=== PATIENT | male | born 1940 | race Caucasian/White ===

== ENCOUNTER → 2018-02-02 17:09 | Outpatient (CLI) | payer MEDICARE, OTHER, SELFPAY ==
--- NOTE | 2018-02-02 | DI.MRI.S_ITS ---
PROCEDURE: MR KNEE LT WO CON INDICATIONS: INTERNAL DERANGEMENT OF LEFT KNEE TECHNIQUE: Noncontrast sagittal PD fast spin echo and T2 fast spin echo with fat saturation, sagittal 3-D FLASH with fat saturation; coronal T1 spin echo and PD fast spin echo with fat saturation, and axial PD fast spin echo with fat saturation through the knee. COMPARISON: None. FINDINGS: Image quality: Excellent. Menisci: There is suggestion of a complex tear involving posterior horn of medial meniscus extending to inferior articulating surface. No evidence of focal lateral meniscal tear. The meniscal root ligaments appear intact. Cruciate ligaments: The anterior and posterior cruciate ligaments appear intact. Medial structures: The medial collateral ligament appears intact. The posterior oblique ligament, semimembranosus tendon insertions, oblique popliteal ligament, and meniscocapsular junction appear intact. Visualized portions of the pes anserinus tendons appear normal. No abnormal bursal fluid. Lateral structures: The lateral collateral ligament, long and short heads of the biceps femoris tendon appear intact. The popliteus tendon appears normal; the popliteofibular ligament appears intact. The posterosuperior and anteroinferior popliteomeniscal fascicles appear intact. The arcuate and fabellofibular ligaments appear intact, on either side of the lateral inferior geniculate artery. Iliotibial band appears normal. Anterior structures: The quadriceps and patellar tendons appear intact. Patellar alignment is normal. No femoral trochlear dysplasia or ventral trochlear prominence. No edema in the infrapatellar fat pad. Bones and cartilage: No bone marrow contusions or fractures. Mild tricompartmental osteoarthritis is seen the prominent medial femorotibial compartment. Chondromalacia involving cartilage overlying medial femoral condyle is seen. Patellar cartilage is intact. Joint space: There is physiologic knee joint fluid. No Guerin's cyst. Normal appearing synovial plicae are incidentally noted. IMPRESSION: 1. Complex oblique tear involving posterior horn of medial meniscus extending to inferior articulating surface. No evidence of focal lateral meniscal tear. 2. Mild tricompartmental osteoarthritis more prominent in the medial femorotibial compartment. 3. Cruciate ligaments are intact. Dictated by: Hung Brunner M.D. on 02/02/2018 at 18:03 Approved by: Hung Brunner M.D. on 02/02/2018 at 18:08
== END ==
PROVIDERS: PCP Internal Medicine; Visit Provider Orthopaedic Surgery
DX: S83.232A Complex tear of medial meniscus, current injury, left knee, initial encounter (principal); M17.12 Unilateral primary osteoarthritis, left knee
CPT/HCPCS: 73721

== ENCOUNTER → 2018-08-21 10:44 | Outpatient (CLI) | payer MEDICARE, OTHER, SELFPAY ==
--- NOTE | 2018-08-21 | DI.RAD.S_ITS ---
PROCEDURE: FL BARIUM SWALLOW INDICATIONS: Dysphagia, unspecified COMPARISON: None. FINDINGS: Function: There is moderate esophageal dysmotility with disorganized tertiary contractions to an examination. Mild gastroesophageal reflux was elicited on exam. There is normal transit of a calibrated barium tablet through the esophagus into the stomach. Morphology: There are postsurgical changes at the gastroesophageal junction. The patient reports a history of hiatal hernia repair. The findings are presumably related to Faviola's fundoplication. Air-contrast images demonstrate normal mucosal morphology. Single contrast views show no esophageal strictures, extrinsic mass effects, or diverticula. Limited images of the stomach demonstrate normal appearance. IMPRESSION: 1. Moderate esophageal dysmotility. 2. Mild gastroesophageal reflux. 3. Postsurgical changes at the GE junction presumably related to Faviola's fundoplication. Recommend clinical correlation. Dictated by: Aquilino Perez M.D. on 08/21/2018 at 11:54 Approved by: Aquilino Perez M.D. on 08/21/2018 at 11:57
== END ==
PROVIDERS: PCP Internal Medicine; Visit Provider Internal Medicine Gastroenterology
DX: R13.10 Dysphagia, unspecified (principal); K22.4 Dyskinesia of esophagus; K21.9 Gastro-esophageal reflux disease without esophagitis
CPT/HCPCS: 74220

== ENCOUNTER 2021-10-04 10:28 | Inpatient (IN) | payer MEDICARE, OTHER, SELFPAY ==
--- NOTE | 2021-10-04 | DI.RAD.S_ITS ---
PROCEDURE: XR ABDOMEN 1V INDICATIONS: SBFT TECHNIQUE: One view of the abdomen acquired. COMPARISON: None. FINDINGS: Enteric contrast was administered via nasogastric versus orogastric tube. This opacifies the stomach and progresses into the proximal and mid small bowel within 1 minutes. Subsequent images demonstrate that the contrast progresses throughout the entire small and large bowel. IMPRESSION: Contrast progresses throughout the entire small and large bowel with no evidence of obstruction. Numerous dilated loops of small bowel and to a lesser degree large bowel may represent ileus. Dictated by: Chema Workman M.D. on 10/04/2021 at 20:10 Approved by: Chema Workman M.D. on 10/04/2021 at 20:11
[2021-10-04 12:33] VITALS: BMI 25.1
--- NOTE | 2021-10-04 13:02 | PC.NURSE ---
Admit pt to AC direct admit at 1215. VSS. HOB elevated at 30 degrees with NG to medium intermittent suction. NG tube is in R nares and taped at 65. Pt alert and oriented and able to converse without difficulty. Oriented to room and call light. Bed alarm on. Supportive spouse at bedside. Pt and spouse notified of NPO status.
[2021-10-04 13:43] VITALS: BP 149/75; PULSE 106; RESP 18; TEMP 36.9; O2SAT 94
--- NOTE | 2021-10-04 13:50 | PM.HP.1 ---
History of Present Illness History of Present Illness Date Patient Seen: 10/04/21 Time Patient Seen: 13:30 Chief complaint: SBO Narrative: Patient is 80-year-old male with history of chronic headache, GERD, appendectomy, cholecystectomy, hiatal hernia repair, as well as multiple abdominal surgeries for SBO. Patient last had major abdominal surgery in 2003 at [facility] which was for adhesion lysis of acute small-bowel obstruction. He has been told by his GI doc that he has extensive abdominal adhesions and to avoid another surgery if possible. He initially presented to [facility] earlier today with complaints of acute abdominal pain and vomiting which started yesterday at 3:30 p.m.. He last dated 5:30 p.m. yesterday last bowel movement was yesterday morning. He has not been passing flatus. CT scan with Gastrografin contrast was attempted but he threw up the contrast. Noncontrast CT did show moderate air-fluid gastric distension with dilated duodenum and jejunum with gradual transition in the proximal ileum. WBC was 18.9, hemoglobin 15.2, platelets 242, sodium 142, potassium 4.3, BUN 19 creatinine 1.3, CO2 24, glucose 162, normal LFTs. NG tube was placed with immediate suction of 700 cc gastric fluid. He has not had fever or chills. He was transferred to [facility] due to lack of surgeon availability at outside hospital. At this time he feels quite distended with moderate abdominal discomfort but no active vomiting. He is not passing flatus. Other surgical history includes a right total hip replacement. Medical history includes COPD, GERD, chronic headaches, BPH, osteoarthritis. No history of coronary artery disease. Patient is , nonsmoker, 1 drink a week. Family history notable for 2 sisters who , 1 with cancer and 1 with diabetes history. Mother had Parkinson's. Patient History Family & Social History Social History: household members spouse Prior Living Arrangements House Safety & Behavioral: Feels Safe in Current Yes Environment Been Physically Hurt or No Threatened By a Person Tobacco & Substance use: Smoking Status Former smoker alcohol intake current alcohol intake frequency a few times a month Substance Use Type does not use Meds Home Medications and Allergies Home Medications Medication Instructions Recorded Confirmed Type 10/04/21 History albuterol sulfate 90 mcg/actuation 2 inh INHALATION Q6H PRN 10/04/21 10/04/21 History breath activated powder inhaler,sensor (Proair Digihaler) beclomethasone dipropionate 80 2 inh INHALATION BID 10/04/21 10/04/21 History mcg/actuation HFA breath activated aerosol (Qvar RediHaler) cholestyramine (with sugar) 4 gram 4 g PO DAILY 10/04/21 10/04/21 History oral powder (Questran) finasteride 5 mg tablet (Proscar) 5 mg PO DAILY 10/04/21 10/04/21 History gabapentin 300 mg tablet 300 mg PO DAILY 10/04/21 10/04/21 History gabapentin 600 mg tablet 600 mg PO BID 10/04/21 10/04/21 History meloxicam 15 mg tablet 15 mg PO DAILY 10/04/21 10/04/21 History mirabegron 50 mg tablet,extended 50 mg PO DAILY 10/04/21 10/04/21 History release 24 hr omeprazole magnesium 20 mg 20 mg PO DAILY 10/04/21 10/04/21 History capsule,delayed release verapamil 40 mg tablet 40 mg PO TID 10/04/21 10/04/21 History Allergies Allergy/AdvReac Type Severity Reaction Status Date / Time epinephrine AdvReac Rash Verified 10/04/21 13:00 Iodine and Iodide Containing AdvReac Rash Verified 10/04/21 13:00 Produc latex AdvReac Rash Verified 10/04/21 13:00 Review of Systems Review of Systems Narrative: He is having some heartburn discomfort, chronic headache, joint pains. Otherwise ROS negative. Exam Vital Signs (past 8 hours): Oxygen Delivery Method Room Air Narrative Exam Narrative: General: Very pleasant alert male who does not appear in severe distress at this time. HEENT: Anicteric, pupils equal and reactive Neck: No lymphadenopathy Lungs: Clear to auscultation Heart: Normal S1 and S2, regular rate and rhythm, without murmur Abdomen: Old midline surgical scars, markedly distended abdomen with absent bowel sounds, no palpable mass Extremities: Warm and nonedematous Neurological: Well oriented, normal affect and speech Skin: No rash Assessment & Plan Assessment & Plan narrative: 1. Acute small-bowel obstruction -patient with prior history of multiple small-bowel obstructions and surgeries for adhesion lysis, outside noncontrast CT consistent with upper small bowel obstruction -will discuss with surgery whether to get a contrast CT study with Gastrografin through NG tube -NG to low intermittent suction -Strict NPO -NS at 150 cc/hour -Morphine PRN -Labs: CBC, CMP, lactate -consult Dr. Jiménez for surgery 2. GERD -Protonix 40 mg IV q.day 3. Chronic headache -hold gabapentin and for appy mill 4. BPH -hold finasteride and mirabegron -monitor for urinary retention 5. COPD -no symptoms currently or wheezing on exam -initiate albuterol MDI if needed DVT prophylaxis: Lovenox Surrogate decision maker: Spouse Time Spent With Patient Critical Care time: I spent a total of [] minutes of critical care time on this patient's care today; this time is exclusive of procedural time. Quality VTE Deep Vein Thrombosis/Pulmonary Embolism Present on Admission: No
[2021-10-04 14:28] VITALS: TEMP 37.3
[2021-10-04] MEDS: SODIUM CHLORIDE 0.9% 1,000 ML 150 ML IV (14:32)
[2021-10-04] MEDS: PANTOPRAZOLE 40 MG VIAL IV (14:32)
[2021-10-04 14:40] LABS: Add Manual Diff / Slide Review NO; Basophils Absolute Auto 0 /uL (0-100); Basophils Percent Auto 0.1 % (0-2); Eosinophils Absolute Auto 0 /uL (0-450); Hematocrit 45.9 % (41-53); Hemoglobin 15.2 g/dL (13.5-17.5); Lymphocytes Absolute Auto 500 /uL (1100-4500); Lymphocytes Percent Auto 2.2 % (25-40); Mean Corpuscular HGB Conc 33.1 % (30-36); Mean Corpuscular Hemoglobin 29.3 PG (26-34); Mean Corpuscular Volume 88.7 fL (80-100); Monocytes Absolute Auto 1300 /uL (0-900); Monocytes Percent Auto 5.6 % (3-14); Neutrophils Absolute Auto 21100 /uL (1500-7000); Neutrophils Percent Auto 92.1 % (50-75); Platelet Count 225 X10^3/uL (150-400); Red Blood Cell Count 5.17 X10^6/uL (4.5-5.9); White Blood Cell Count 22.9 X10^3/uL (4.5-11.0)
[2021-10-04 14:57] LABS: Alanine Aminotransferase 201 IU/L (<50); Albumin Globulin Ratio 1.4 (1.0-2.8); Alkaline Phosphatase 195 U/L (38-126); Aspartate Aminotransferase 142 IU/L (17-59); BUN Creatinine Ratio 15.5 (6-22); Bilirubin Total 0.8 mg/dL (0.2-1.3); Blood Urea Nitrogen 17 mg/dL (9-20); Calcium 8.7 mg/dL (8.4-10.2); Carbon Dioxide 25 mmol/L (22-32); Chloride 104 mmol/L (98-107); Estimated Glomerular Filt Rate > 60 mL/min (>60); Globulin 2.9 g/dL (1.7-4.1); Glucose 121 mg/dL (80-110); HEMOLYSIS < 15 (0-50); Potassium 4.5 mmol/L (3.4-5.1); Sodium 139 mmol/L (137-145); Total Protein 6.9 g/dL (6.3-8.2)
[2021-10-04 15:17] LABS: Lactate (Lactic Acid) 1.2 mmol/L (0.7-2.1)
--- NOTE | 2021-10-04 15:28 | PC.NURSE ---
late note: patient's pain is controlled with vistaril, oxycodone and tylenol. pt refused miralax. mira patent, ok per provider to leave it in.
[2021-10-04 17:43] VITALS: BP 127/77; PULSE 104; RESP 18; TEMP 36.9; O2SAT 94
[2021-10-04] MEDS: ONDANSETRON 4 MG/2 ML INJ IV (18:21)
--- NOTE | 2021-10-04 20:09 | PM.CN ---
History of Present Illness Consult details Date Patient Seen: 10/04/21 Time Patient Seen: 14:00 Chief complaint: SBO Narrative: 80 y.o man numerous abdominal surgeries transfered from outside hospital for a sbo. Developed abdominal pain N/V yesterday, no flatus or BM. CT at OSH demonstrates SBO no free air was not performed with PO contrast. NGT placed with bilious output. 4 previous ex laps for SBO no notes available but by his description they were complex multiple enterotoimes, multiple small bowel resesctions, perhaps fistuals. He was told by his providers he should never have further abdominal surgery unless dire emergency. At admission WBC 22 from 18 24 hrs ago, hr 110, BP 150/90, temp 99.5 Meds Home Medications and Allergies Home Medications Medication Instructions Recorded Confirmed Type 10/04/21 History albuterol sulfate 90 mcg/actuation 2 inh INHALATION Q6H PRN 10/04/21 10/04/21 History breath activated powder inhaler,sensor (Proair Digihaler) beclomethasone dipropionate 80 2 inh INHALATION BID 10/04/21 10/04/21 History mcg/actuation HFA breath activated aerosol (Qvar RediHaler) cholestyramine (with sugar) 4 gram 4 g PO DAILY 10/04/21 10/04/21 History oral powder (Questran) finasteride 5 mg tablet (Proscar) 5 mg PO DAILY 10/04/21 10/04/21 History gabapentin 300 mg tablet 300 mg PO DAILY 10/04/21 10/04/21 History gabapentin 600 mg tablet 600 mg PO BID 10/04/21 10/04/21 History meloxicam 15 mg tablet 15 mg PO DAILY 10/04/21 10/04/21 History mirabegron 50 mg tablet,extended 50 mg PO DAILY 10/04/21 10/04/21 History release 24 hr omeprazole magnesium 20 mg 20 mg PO DAILY 10/04/21 10/04/21 History capsule,delayed release verapamil 40 mg tablet 40 mg PO TID 10/04/21 10/04/21 History Allergies Allergy/AdvReac Type Severity Reaction Status Date / Time epinephrine AdvReac Rash Verified 10/04/21 13:00 latex AdvReac Rash Verified 10/04/21 13:00 Exam Vital Signs (past 8 hours): - 10/04/21 13:43 10/04/21 14:28 10/04/21 17:43 Temperature 98.5 F 99.2 F 98.5 F Pulse Rate 106 H 104 H Respiratory Rate 18 18 Blood Pressure 149/75 H 127/77 Pulse Oximetry 94 94 Oxygen Delivery Method Room Air Oxygen Flow Rate 0 Narrative Exam Narrative: General-Elderly man alert and oriented appears uncomfortable Chest-Non labored resp Abdomen-Distended, compressible tender no peritonitis. thick midline scars Ext-WWP NGT-bilious Objective Labs Result Diagrams: 10/04/21 14:14 10/04/21 14:14 Labs: Laboratory Results - last 24 hr 10/04/21 10/04/21 10/04/21 14:14 14:14 14:45 WBC 22.9 H RBC 5.17 Hgb 15.2 Hct 45.9 MCV 88.7 MCH 29.3 MCHC 33.1 RDW 13.0 Plt Count 225 Neut % (Auto) 92.1 H Lymph % (Auto) 2.2 L [place] % (Auto) 5.6 Eos % (Auto) 0.0 L Baso % (Auto) 0.1 Neut # (Auto) 71743 H Lymph # (Auto) 500 L [place] # (Auto) 1300 H Eos # (Auto) 0 Baso # (Auto) 0 Sodium 139 Potassium 4.5 Chloride 104 Carbon Dioxide 25 BUN 17 Creatinine 1.10 Estimated GFR > 60 BUN/Creatinine Ratio 15.5 Glucose 121 H Lactate 1.2 Calcium 8.7 Total Bilirubin 0.8 AST 142 H ALT 201 H Alkaline Phosphatase 195 H Total Protein 6.9 Albumin 4.0 Globulin 2.9 Albumin/Globulin Ratio 1.4 PFSH Social History household members: spouse Tobacco & Substance Use Smoking Status: Former smoker alcohol intake: current Assessment & Plan Assessment and plan (1) SBO (small bowel obstruction): Status: Acute Assessment & Plan narrative: 80 y.o man with a SBO numerous prior abdominal surgeries. Complex situation. I am concerned about the viability of his intestine given worsening leukocytosis over the past 24 hrs, low grade fever and mild tachycardia. However, I suspect he likely has a frozen abdomen given the complexity of his described prior surgeries for SBO. He is not clinically deteriorating and does not have peritonitis on exam. Will proceed with conservative management at this time. The patient and his understand that if surgery becomes necessary it is very high risk for morbidity and mortality. Their questions have been answered and they are in agreement with this plan/ -NPO -NGT -Small bowel follow through Time Spent With Patient Critical Care time: I spent a total of [] minutes of critical care time on this patient's care today; this time is exclusive of procedural time.
[2021-10-04 20:30] VITALS: BP 149/92; PULSE 103; RESP 20; TEMP 36.6; O2SAT 92
--- NOTE | 2021-10-04 20:43 | PC.NURSE ---
Dr Jiménez called stated that it was ok to start up NG tube. Will monitor.
[2021-10-04 21:00] VITALS: O2SAT 92
[2021-10-05] VITALS (8 sets, daily range): BP systolic 130–147; BP diastolic 65–81; PULSE 80–88; RESP 17–19; TEMP 36.1–36.6; O2SAT 93–97
--- NOTE | 2021-10-05 03:28 | PC.NURSE ---
Pt's NG tube was pulled out, pt requested that NG tube not be put back in. Pt having several BM's this shift. Informed Adamaris Tilley, will leave the tube out.
[2021-10-05] MEDS: SODIUM CHLORIDE 0.9% 1,000 ML 150 ML IV ×2 (04:15→11:32)
[2021-10-05 05:48] LABS: Add Manual Diff / Slide Review NO; Basophils Absolute Auto 0 /uL (0-100); Basophils Percent Auto 0.3 % (0-2); Eosinophils Absolute Auto 0 /uL (0-450); Eosinophils Percent Auto 0.3 % (2-4); Hematocrit 38.3 % (41-53); Lymphocytes Absolute Auto 800 /uL (1100-4500); Mean Corpuscular Hemoglobin 29.9 PG (26-34); Mean Corpuscular Volume 88.1 fL (80-100); Monocytes Absolute Auto 1000 /uL (0-900); Monocytes Percent Auto 7.3 % (3-14); Neutrophils Absolute Auto 11300 /uL (1500-7000); Neutrophils Percent Auto 86.1 % (50-75); Platelet Count 186 X10^3/uL (150-400); Red Blood Cell Count 4.35 X10^6/uL (4.5-5.9); Red Cell Distribution Width 12.8 % (11.6-14.8); White Blood Cell Count 13.1 X10^3/uL (4.5-11.0)
[2021-10-05 06:23] LABS: Alanine Aminotransferase 130 IU/L (<50); Albumin 2.9 g/dL (3.5-5.0); Albumin Globulin Ratio 1.3 (1.0-2.8); Alkaline Phosphatase 136 U/L (38-126); Aspartate Aminotransferase 53 IU/L (17-59); Bilirubin Total 0.8 mg/dL (0.2-1.3); Bilirubin Unconjugated 0.7 mg/dL (0.0-1.1); Globulin 2.3 g/dL (1.7-4.1); HEMOLYSIS < 15 (0-50); Total Protein 5.2 g/dL (6.3-8.2)
[2021-10-05 06:25] LABS: BUN Creatinine Ratio 16.1 (6-22); Blood Urea Nitrogen 18 mg/dL (9-20); Calcium 7.9 mg/dL (8.4-10.2); Carbon Dioxide 25 mmol/L (22-32); Chloride 111 mmol/L (98-107); Estimated Glomerular Filt Rate > 60 mL/min (>60); Glucose 107 mg/dL (80-110); HEMOLYSIS < 15 (0-50); Potassium 3.9 mmol/L (3.4-5.1); Sodium 143 mmol/L (137-145)
[2021-10-05] MEDS: PANTOPRAZOLE 40 MG VIAL IV (08:46)
--- NOTE | 2021-10-05 09:23 | CM.DANOTE ---
Patient is an 80 yo male who was admitted on 10/04/21 for SBO. Pt has [employer] and [employer] for insurance and his PCP is Valeriy Weldon. EMR was reviewed. Per MD, pt with hx of prior SBOs and admitted with n/v and NGT placed for SBO. Per Surgeon, pt at high risk for complications with surgical intervention and attempting conservative tx today and NPO with NGT. Per RN, pt's NGT was accidentally removed and pt refusing to have it replaced. SW spoke to Surgeon who was meeting bedside with pt and pt making progress and had bm with active bowel tones and will be transitioned to clear liquids and advance diet as tolerated towards possible d/c home later today. No anticipated barriers to discharge. SW met briefly bedside with pt and explained role and he confirms he lives in [place] with his spouse and is independent with ADL's at baseline and denies any hx of HH or SNF. Pt's preference is home later today via spouse POV and does not anticipate any needs at discharge. Plan: SW to follow closely to determine if pt can tolerate advancing diet towards possible d/c home later today pending progress. DENNIS Briscoe Discharge Planning/Care Management CM Discharge Assessment Start: 10/05/21 09:22 Freq: Status: Active Protocol: Document 10/05/21 09:22 BF (Rec: 10/05/21 09:23 BF [id number]) Discharge Planning Assessment Assigned Machine Bunch Maker DENNIS Sanchez DPOA/Assigned Designee Name spouse Marsha Contact Information [phone] Advance Directives? No Advance Directives on File No History Provided By Patient,Family Member,Medical Record Has Patient been admitted in last 30 No days? Prior Living Arrangements House Household Members spouse Type of transporation used prior to Drives own vehicle admit Independent with ADL's Yes Is patient alert and oriented? Yes Needs Assistance With Home Chores / Shopping Caregiver for Another No DME Already Rented / Owned Cane Barriers to Discharge No Discharge Plan Home Transportation Arrangement Spouse likely to transport at d/c Referrals Initiated None needed Whiteboard Updated in Patient Room with Yes name and ext. # of Machine Bunch Maker Review Status In Process Please Provide Date Initial DC 10/05/21 Assessment Was Performed Next Review Type Continued Stay Review
--- NOTE | 2021-10-05 10:00 | P.PN_ITS ---
Subjective Subjective Date Patient Seen: 10/05/21 Time Patient Seen: 10:00 Interval history: No abdominal pain no nausea. NG tube was accidentally pulled last night. Small-bowel follow-through demonstrates progress of the contrast into the colon multiple bowel movements overnight. Exam Vital Signs (past 8 hours): - 10/05/21 04:00 10/05/21 05:00 10/05/21 08:00 Temperature 97.4 F L 97.8 F Pulse Rate 88 87 Respiratory Rate 19 17 Blood Pressure 134/65 130/74 Pulse Oximetry 93 93 95 10/05/21 09:06 Temperature Pulse Rate Respiratory Rate Blood Pressure Pulse Oximetry 94 Oxygen Delivery Method Room Air Oxygen Flow Rate 0 Narrative Exam Narrative: General adult male alert oriented no acute distress Abdomen soft nontender. Objective Labs Result Diagrams: 10/05/21 04:44 10/05/21 04:45 Labs: Laboratory Results - last 24 hr 10/04/21 10/04/21 10/04/21 14:14 14:14 14:45 WBC 22.9 H RBC 5.17 Hgb 15.2 Hct 45.9 MCV 88.7 MCH 29.3 MCHC 33.1 RDW 13.0 Plt Count 225 Neut % (Auto) 92.1 H Lymph % (Auto) 2.2 L [place] % (Auto) 5.6 Eos % (Auto) 0.0 L Baso % (Auto) 0.1 Neut # (Auto) 12774 H Lymph # (Auto) 500 L [place] # (Auto) 1300 H Eos # (Auto) 0 Baso # (Auto) 0 Sodium 139 Potassium 4.5 Chloride 104 Carbon Dioxide 25 BUN 17 Creatinine 1.10 Estimated GFR > 60 BUN/Creatinine Ratio 15.5 Glucose 121 H Lactate 1.2 Calcium 8.7 Total Bilirubin 0.8 Conjugated Bilirubin Unconjugated Bilirubin AST 142 H ALT 201 H Alkaline Phosphatase 195 H Total Protein 6.9 Albumin 4.0 Globulin 2.9 Albumin/Globulin Ratio 1.4 10/05/21 10/05/21 10/05/21 04:44 04:44 04:45 WBC 13.1 H RBC 4.35 L Hgb 13.0 L Hct 38.3 L MCV 88.1 MCH 29.9 MCHC 34.0 RDW 12.8 Plt Count 186 Neut % (Auto) 86.1 H Lymph % (Auto) 6.0 L [place] % (Auto) 7.3 Eos % (Auto) 0.3 L Baso % (Auto) 0.3 Neut # (Auto) 22094 H Lymph # (Auto) 800 L [place] # (Auto) 1000 H Eos # (Auto) 0 Baso # (Auto) 0 Sodium 143 Potassium 3.9 Chloride 111 H Carbon Dioxide 25 BUN 18 Creatinine 1.12 Estimated GFR > 60 BUN/Creatinine Ratio 16.1 Glucose 107 Lactate Calcium 7.9 L Total Bilirubin 0.8 Conjugated Bilirubin 0.0 Unconjugated Bilirubin 0.7 AST 53 ALT 130 H Alkaline Phosphatase 136 H Total Protein 5.2 L Albumin 2.9 L Globulin 2.3 Albumin/Globulin Ratio 1.3 PFSH Social History household members: spouse Smoking Status: Former smoker alcohol intake: current Assessment & Plan Assessment & Plan narrative: 80-year-old male with a resolved small bowel obstruction. Small-bowel follow- through reviewed demonstrates contrast within rectum. -clear liquid diet advanced as tolerated. -will sign off please contact with questions Time Spent With Patient Critical Care time: I spent a total of [] minutes of critical care time on this patient's care today; this time is exclusive of procedural time. Quality VTE Deep Vein Thrombosis/Pulmonary Embolism Present on Admission: No
--- NOTE | 2021-10-05 12:09 | P.DS_ITS ---
History of Present Illness History of Present Illness Chief complaint: SBO Narrative: Per admitting provider: Patient is 80-year-old male with history of chronic headache, GERD, appendectomy, cholecystectomy, hiatal hernia repair, as well as multiple abdominal surgeries for SBO.? Patient last had major abdominal surgery in 2003 at [facility] which was for adhesion lysis of acute small-bowel obstruction.? He has been told by his GI doc that he has extensive abdominal adhesions and to avoid another surgery if possible.? He initially presented to [facility] earlier today with complaints of acute abdominal pain and vomiting which started yesterday at 3:30 p.m..? He last dated 5:30 p.m. yesterday last bowel movement was yesterday morning.? He has not been passing flatus.? CT scan with Gastrografin contrast was attempted but he threw up the contrast.? Noncontrast CT did show moderate air-fluid gastric distension with dilated duodenum and jejunum with gradual transition in the proximal ileum.? WBC was 18.9, hemoglobin 15.2, platelets 242, sodium 142, potassium 4.3, BUN 19 creatinine 1.3, CO2 24, glucose 162, normal LFTs.? NG tube was placed with immediate suction of 700 cc gastric fluid.? He has not had fever or chills.? He was transferred to [facility] due to lack of surgeon availability at outside hospital.? At this time he feels quite distended with moderate abdominal discomfort but no active vomiting.? He is not passing flatus. Other surgical history includes a right total hip replacement.? Medical history includes COPD, GERD, chronic headaches, BPH, osteoarthritis.? No history of coronary artery disease. Patient is , nonsmoker, 1 drink a week.? Family history notable for 2 sisters who , 1 with cancer and 1 with diabetes history.? Mother had Parkinson's. Discharge Providers Provider Date of admission: 10/04/21 10:28 Discharge Date: 10/05/21 Primary care physician: Valeriy Bender MD Consults: 10/04/21 13:49 Consult to Physician Routine Comment: Consulting Provider: Severo Jiménez Reason for consultation: SBO Has provider been notified: Yes Discharge provider: Kenny Valle MD Summary Hospital Course Discharge Diagnosis: 1. Acute small bowel obstruction 2. GERD 3. Chronic headache 4. BPH 5. COPD Hospital Course: Mr. Zhou was admitted with a small bowel obstruction. He initially had an NG tube with good effect. The etiology was thought to be adhesive disease. He did get a small bowel follow through which was normal. His symptoms resolved. He was able to tolerate a diet and felt back to normal and was discharged home. Exam Vital Signs (past 8 hours): - 10/05/21 15:42 Temperature 97.3 F L Pulse Rate 83 Respiratory Rate 17 Blood Pressure 144/75 H Pulse Oximetry 97 Oxygen Delivery Method Room Air Oxygen Flow Rate 0 Narrative Exam Narrative: General no acute distress Abdomen soft nontender. Objective Labs Result Diagrams: 10/05/21 04:44 10/05/21 04:45 Labs: Laboratory Results - last 24 hr 10/05/21 10/05/21 10/05/21 04:44 04:44 04:45 WBC 13.1 H RBC 4.35 L Hgb 13.0 L Hct 38.3 L MCV 88.1 MCH 29.9 MCHC 34.0 RDW 12.8 Plt Count 186 Neut % (Auto) 86.1 H Lymph % (Auto) 6.0 L Mckean % (Auto) 7.3 Eos % (Auto) 0.3 L Baso % (Auto) 0.3 Neut # (Auto) 91754 H Lymph # (Auto) 800 L Mckean # (Auto) 1000 H Eos # (Auto) 0 Baso # (Auto) 0 Sodium 143 Potassium 3.9 Chloride 111 H Carbon Dioxide 25 BUN 18 Creatinine 1.12 Estimated GFR > 60 BUN/Creatinine Ratio 16.1 Glucose 107 Calcium 7.9 L Total Bilirubin 0.8 Conjugated Bilirubin 0.0 Unconjugated Bilirubin 0.7 AST 53 ALT 130 H Alkaline Phosphatase 136 H Total Protein 5.2 L Albumin 2.9 L Globulin 2.3 Albumin/Globulin Ratio 1.3 PFSH Social History household members: spouse Smoking Status: Former smoker alcohol intake: current Discharge Plan Discharge Plan Patient Disposition: Home Provider Discharge Comment: Mr. Zhou came in with abdominal pain. Initially there was concern for a small bowel obstruction. This had resolved with the small bowel xrays, and he felt better and was able to be discharged home. Discharge orders & Medications Prescriptions: Continued gabapentin 600 mg Tablet 600 mg PO BID 0RF Rx Instructions: with lunch and at dinner verapamil 40 mg Tablet 40 mg PO TID 0RF meloxicam 15 mg Tablet 15 mg PO DAILY 0RF finasteride [Proscar] 5 mg Tablet 5 mg PO DAILY 0RF Rx Instructions: in the evening cholestyramine (with sugar) [Questran] 4 gram Powder 4 g PO DAILY 0RF Rx Instructions: administer w/meal; avoid other meds within 1hr before or 4-6hr after dose gabapentin 300 mg Tablet 300 mg PO DAILY 0RF omeprazole magnesium 20 mg Capsule,Delayed Release(Dr/Ec) 20 mg PO DAILY 0RF mirabegron 50 mg Tablet Extended Release 24 Hr 50 mg PO DAILY 0RF 0RF Rx Instructions: 1-2mg PO TID PRN Qvar RediHaler 80 mcg/actuation HFA aerosol breath activated 2 inh INHALATION BID 0RF Label Comments: TAKE 2 PUFFS BY MOUTH TWICE DAILY Proair Digihaler 90 mcg/actuation Aero Powdr Breath Act W/Sensor 2 inh INHALATION Q6H PRN (Reason: Shortness Of Breath) 0RF Follow up/Referrals: Felipe Yo MD [Non-Staff] - Diet/Activity/Treatments Diet: Regular Discharge Data Primary Care Provider: Valeriy Bender VTE Deep Vein Thrombosis/Pulmonary Embolism Present on Admission: No
--- NOTE | 2021-10-05 16:23 | PC.NURSE ---
Pt readied for d/c, IV discontinued intact. laura well, D/C instructions given and rec'd by Pt and .Pt escorted to car via w/c by RN.
== END 2021-10-05 16:08 | disposition home or self-care (01) | DRG 390 ==
PROVIDERS: Admitting Provider Internal Medicine; PCP Family Medicine; Referring Provider Internal Medicine; Visit Provider Internal Medicine
DX: K56.50 Intestinal adhesions [bands], unspecified as to partial versus complete obstruction (principal); K21.9 Gastro-esophageal reflux disease without esophagitis; J44.9 Chronic obstructive pulmonary disease, unspecified; N40.0 Benign prostatic hyperplasia without lower urinary tract symptoms; Z20.822 Contact with and (suspected) exposure to COVID-19; Z87.891 Personal history of nicotine dependence
CPT/HCPCS: 36415; 74018; 74250; 80048; 80053; 80076; 83605; 85025; 94760; 99231; 99232; C9113; J2405

== ENCOUNTER → 2022-05-12 11:18 | Outpatient (CLI) | payer MEDICARE, OTHER, SELFPAY ==
[2022-05-12 13:05] LABS: COVID19 -Nasal RAPID Negative (Negative)
== END ==
PROVIDERS: PCP Physician Assistant; Referring Provider Internal Medicine; Visit Provider Internal Medicine
DX: Z20.822 Contact with and (suspected) exposure to COVID-19 (principal)
CPT/HCPCS: 87635; C9803

== ENCOUNTER → 2022-05-12 11:21 | Outpatient (CLI) | payer MEDICARE, OTHER, SELFPAY ==
--- NOTE | 2022-05-24 11:11 | PM.PFT.1 ---
Pulmonary Function Test Referral & Results Date Patient Seen: 05/12/22 Requesting provider: Jessy Briseno Results: The spirometry demonstrates an FVC of 2.68 L which is 78% of predicted. The FEV1 was measured at 1.87 L which is 78% of predicted. The FEV1/FVC ratio was 70 which is 98% of predicted. Following the administration of bronchodilator there was 15% improvement in FEV1 and a 55% improvement in FEF 25-75%. Interpretation: This study demonstrates probable mild obstructive lung disease based on reduction FEV1 although FEV1/FVC ratio is preserved. There is evidence of some improvement following bronchodilator particularly small airway flow based on improvement in FEF 25-75% as above Clinical correlation suggested
== END ==
PROVIDERS: PCP Physician Assistant; Referring Provider Physician Assistant; Visit Provider Physician Assistant
DX: J44.9 Chronic obstructive pulmonary disease, unspecified (principal); Z20.822 Contact with and (suspected) exposure to COVID-19
CPT/HCPCS: 87635; 94060; C9803